=== PATIENT | male | born 1985 | race Caucasian/White ===

== ENCOUNTER 2017-02-03 02:38 | Emergency (ER) | payer OTHER | END 2017-02-03 05:36 | disposition home or self-care (01) | LOC: FER 02:38 | DX: G56.31 Lesion of radial nerve, right upper limb (principal); R11.0 Nausea; F32.9 Major depressive disorder, single episode, unspecified; F17.210 Nicotine dependence, cigarettes, uncomplicated | CPT/HCPCS: 99283 ==